=== PATIENT | female | born 1970 | race Caucasian/White ===

== ENCOUNTER → 2017-12-10 | Outpatient (CLI) | payer BC, OTHER ==
[~2017-12-10] MED LIST: IOHEXOL 240 MG/ML 50ML VIAL. ONE; IOHEXOL 300 MG/ML 75 ML VIAL. IV ONE
--- NOTE | 2017-12-10 15:29 | RAD ---
EXAM: Abdomen and pelvis CT with intravenous contrast. HISTORY: Left lower quadrant pain. TECHNIQUE: Computed tomographic images of the abdomen and pelvis were obtained following the administration of 75 cc Omnipaque 300 intravenous contrast. Multiplanar reformatting was performed. *One or more of the following individualized dose reduction techniques were utilized for this examination: 1. Automated exposure control. 2. Adjustment of the mA and/or kV according to patient size. 3. Use of iterative reconstruction technique. COMPARISON: None. FINDINGS: Evaluation of the lower thorax is unremarkable. No hepatic lesion is seen. The gallbladder is contracted due to the postprandial status the patient. The pancreas, adrenal glands and right kidney are unremarkable. There is a 3 mL nonobstructing stone within the lower pole the left kidney. There is no appendicitis. There is extensive colonic diverticulosis. There is segmental mucosal thickening with surrounding stranding at the splenic flexure the colon due to acute diverticulitis. No drainable fluid collection is seen. There are multiple ovarian follicles with a suspected dominant left ovarian follicular cyst measuring 2.4 cm. There is a small amount of pelvic free fluid. The bladder is decompressed. There are prominent retroperitoneal lymph nodes, likely physiologic or reactive in etiology. There is evidence of prior hernia repair. There is no suspicious osseous lesion. IMPRESSION: 1. Acute diverticulitis involving the splenic flexure of the colon. No drainable fluid collection is seen. The superimposed on diffuse colonic diverticulosis. 2. Prominent retroperitoneal lymph nodes, likely physiologic or reactive in etiology. 3. Suspected 2.4 cm dominant left ovarian follicular cyst. Electronically signed by: Antonia Lazaro MD (12/10/2017 3:26 PM) [id number]
== END | disposition home or self-care (01) ==
LOC: CT 13:32
PROVIDERS: ATTEND Physician Assistant
DX: K57.32 Diverticulitis of large intestine without perforation or abscess without bleeding (principal); K57.30 Diverticulosis of large intestine without perforation or abscess without bleeding; R59.0 Localized enlarged lymph nodes
CPT/HCPCS: 74177; Q9966; Q9967

== ENCOUNTER → 2017-12-10 | Outpatient (CLI) | payer BC, OTHER ==
[2017-12-10 12:28] LABS: BASO % 0 % (0-3); EOS # 0.2 x10^3/uL (0.0-0.7); EOS % 2 % (0-3); HEMATOCRIT 41.1 % (36.0-47.0); HEMOGLOBIN 13.8 g/dL (12.0-15.5); LYMPH % 18 % (24-48); MEAN CORPUSCULAR HEMOGLOBIN 31 pg (25-35); MEAN CORPUSCULAR HGB CONC 34 g/dL (31-37); MEAN CORPUSCULAR VOLUME 92 fL (79-100); MONO # 0.8 x10^3/uL (0.0-1.1); MONO % 7 % (0-9); NEUT # 8.5 x10^3uL (1.8-7.7); NEUT % 73 % (31-73); PLATELET COUNT 293 x10^3/uL (140-400); RED BLOOD COUNT 4.48 x10^6/uL (3.50-5.40); RED CELL DISTRIBUTION WIDTH 13.8 % (11.5-14.5); WHITE BLOOD COUNT 11.5 x10^3/uL (4.0-11.0)
[2017-12-10 12:45] LABS: ALBUMIN 3.5 g/dL (3.4-5.0); ALBUMIN/GLOBULIN RATIO 0.7 (1.0-1.7); CALCIUM 9.4 mg/dL (8.5-10.1); CREATININE 0.9 mg/dL (0.6-1.0); GFR 67.4; POTASSIUM 3.4 mmol/L (3.5-5.1); TOTAL BILIRUBIN 0.4 mg/dL (0.2-1.0); TOTAL PROTEIN 8.2 g/dL (6.4-8.2)
[2017-12-10 13:36] LABS: SEDIMENTATION RATE 50 (0-25)
== END | disposition home or self-care (01) ==
LOC: PMG 11:41
PROVIDERS: ATTEND Physician Assistant
DX: R10.32 Left lower quadrant pain (principal)
CPT/HCPCS: 36415; 80053; 82150; 83690; 85025; 85651

== ENCOUNTER → 2019-03-05 | Outpatient (CLI) | payer BC, OTHER ==
[2019-03-05 15:02] LABS: BASO % 0 % (0-3); EOS # 0.4 x10^3/uL (0.0-0.7); EOS % 5 % (0-3); HEMATOCRIT 39.9 % (36.0-47.0); HEMOGLOBIN 13.3 g/dL (12.0-15.5); LYMPH # 2.2 x10^3/uL (1.0-4.8); LYMPH % 26 % (24-48); MEAN CORPUSCULAR HEMOGLOBIN 31 pg (25-35); MEAN CORPUSCULAR HGB CONC 33 g/dL (31-37); MEAN CORPUSCULAR VOLUME 92 fL (79-100); MONO # 0.4 x10^3/uL (0.0-1.1); MONO % 5 % (0-9); NEUT # 5.5 x10^3uL (1.8-7.7); NEUT % 64 % (31-73); PLATELET COUNT 294 x10^3/uL (140-400); RED BLOOD COUNT 4.36 x10^6/uL (3.50-5.40); RED CELL DISTRIBUTION WIDTH 13.6 % (11.5-14.5); WHITE BLOOD COUNT 8.6 x10^3/uL (4.0-11.0)
[2019-03-05 15:06] LABS: ALBUMIN 3.4 g/dL (3.4-5.0); ALBUMIN/GLOBULIN RATIO 0.8 (1.0-1.7); CALCIUM 8.7 mg/dL (8.5-10.1); CREATININE 0.8 mg/dL (0.6-1.0); GFR 76.9; POTASSIUM 3.9 mmol/L (3.5-5.1); TOTAL BILIRUBIN 0.2 mg/dL (0.2-1.0); TOTAL PROTEIN 7.5 g/dL (6.4-8.2)
[2019-03-05 16:06] LABS: SEDIMENTATION RATE 18 (0-25)
[2019-03-06 11:17] LABS: FREE T4 0.9 ng/dL (0.76-1.46); THYROID STIM HORMONE (TSH) 5.695 uIU/mL (0.358-3.740)
--- NOTE | 2019-03-06 11:18 | RAD ---
Supine abdomen. HISTORY: Abdominal pain Supine views were taken of the abdomen. Bowel pattern is normal. There are no abnormal calcifications. Osseous structures are unremarkable. IMPRESSION: 1. No bowel obstruction or acute finding in the abdomen. Electronically signed by: Cade Heredia MD (03/06/2019 11:16 AM) [facility]
== END | disposition home or self-care (01) ==
LOC: PMG 14:09
PROVIDERS: ATTEND Physician Assistant
DX: R10.32 Left lower quadrant pain (principal); M54.6 Pain in thoracic spine; G56.91 Unspecified mononeuropathy of right upper limb
CPT/HCPCS: 36415; 74019; 80053; 84439; 84443; 85025; 85651

== ENCOUNTER → 2019-03-16 | Outpatient (CLI) | payer BC, OTHER ==
--- NOTE | 2019-03-16 10:57 | RAD ---
CT ABDOMEN PELVIS WO CONTRAST Indication: Left lower quadrant pain. Left flank pain. Hematuria. Exposure: One or more of the following individualized dose reduction techniques were utilized for this examination: 1. Automated exposure control 2. Adjustment of the mA and/or kV according to patient size 3. Use of iterative reconstruction technique. Comparison: 12/10/2017 Technique: No intravenous contrast given. No oral contrast per request. Findings: Evaluation of solid viscera, bowel and vasculature is compromised by the noncontrast technique. Lung bases are clear. Liver and spleen appear unremarkable. Pancreas appears unremarkable. No evidence of adrenal mass. Small nonobstructive calculus in the lower pole the left kidney measuring 5 mm. This was also seen on the prior study. No evidence of hydronephrosis. The distal ureters are difficult to follow, but no evidence of ureteric dilatation or ureteric calculus. Gallbladder is not well distended, no calcified stone is seen. Aorta is nonaneurysmal. Small retroperitoneal and mesenteric lymph nodes are seen, appears stable, no pathologic lymph node enlargement is seen. Small hiatal hernia and/or mild distal esophageal wall thickening is seen and appears similar to the prior study. Stomach is not distended. No significant small bowel distention. No evidence of colonic wall thickening or acute paracolonic fatty stranding. Mild diverticulosis. Appendix appears normal. No evidence of ascites or pneumoperitoneum. Urinary bladder is not well distended, appears similar to prior study. No evidence of definite pelvic mass. Vertebral body height and alignment are intact. Mild degenerative spondylosis. No aggressive bone destruction. IMPRESSION: 1. Small nonobstructive left renal calculus is again seen. 2. Small hiatal hernia versus distal esophageal wall thickening appears similar to prior study. 3. No acute findings are identified. Electronically signed by: Jesse Allen MD (03/16/2019 10:54 AM) [id number]
== END | disposition home or self-care (01) ==
LOC: CT 09:56
PROVIDERS: ATTEND Physician Assistant
DX: N20.0 Calculus of kidney (principal); K57.90 Diverticulosis of intestine, part unspecified, without perforation or abscess without bleeding; M47.816 Spondylosis without myelopathy or radiculopathy, lumbar region
CPT/HCPCS: 74176

== ENCOUNTER → 2020-04-28 | Outpatient (CLI) | payer BC, OTHER ==
--- NOTE | 2020-04-28 16:09 | RAD ---
XR EXAM OF ANKLE_RIGHT 3VIEWS 04/28/2020 9:30 AM INDICATION: Ankle pain COMPARISON: None available. TECHNIQUE: 3 views the right ankle are provided. FINDINGS/ IMPRESSION: There is no acute fracture or dislocation. Joint spaces are maintained. Bone mineralization is within normal limits. Regional soft tissues are within normal limits. There is no soft tissue gas or osseou s erosion. No radiopaque foreign body. Posterior and plantar calcaneal enthesophytes are present. Electronically signed by: Vernell Solano MD (04/28/2020 4:07 PM) [email or web address]
== END ==
LOC: RAD 09:14
PROVIDERS: ATTEND Physician Assistant
DX: M25.571 Pain in right ankle and joints of right foot (principal)
CPT/HCPCS: 73610

== ENCOUNTER → 2020-05-17 | Day surgery (SDC) | payer BC, OTHER ==
[~2020-05-17] MED LIST changes: -IOHEXOL 240 MG/ML 50ML VIAL. ONE; -IOHEXOL 300 MG/ML 75 ML VIAL. IV ONE; +MELO15TA6 PO
[2020-05-17 12:11] VITALS: BP 151/99
== END | disposition home or self-care (01) ==
LOC: SURG 12:01
PROVIDERS: ATTEND Anesthesiology
DX: M47.22 Other spondylosis with radiculopathy, cervical region (principal); M50.10 Cervical disc disorder with radiculopathy, unspecified cervical region; M54.5 Low back pain; J30.2 Other seasonal allergic rhinitis; Z90.13 Acquired absence of bilateral breasts and nipples; Z98.890 Other specified postprocedural states; Z79.899 Other long term (current) drug therapy; Z85.3 Personal history of malignant neoplasm of breast
CPT/HCPCS: 99204; G0463

== ENCOUNTER → 2020-06-21 | Day surgery (SDC) | payer BC, OTHER ==
[~2020-06-21] MED LIST changes: +omega 3
[2020-06-21 14:19] VITALS: BP 111/94
== END | disposition home or self-care (01) ==
LOC: SURG 14:14
PROVIDERS: ATTEND Anesthesiology
DX: M54.12 Radiculopathy, cervical region (principal); M47.812 Spondylosis without myelopathy or radiculopathy, cervical region; M50.30 Other cervical disc degeneration, unspecified cervical region; J30.2 Other seasonal allergic rhinitis; M54.5 Low back pain; Z90.13 Acquired absence of bilateral breasts and nipples; Z85.3 Personal history of malignant neoplasm of breast; Z90.721 Acquired absence of ovaries, unilateral; Z79.899 Other long term (current) drug therapy
CPT/HCPCS: 99212; G0463

== ENCOUNTER → 2020-06-28 | Day surgery (SDC) | payer BC, OTHER ==
[~2020-06-28] MED LIST changes: +0.9 % SODIUM CHLORIDE 10 ML VIAL. ONE; +DEXAMETHASONE SOD PHOS 10 MG/ML VIAL. ONE; +IOHEXOL 300 MG/ML 50 ML VIAL. ONE; +LIDOCAINE 1% PF 30 ML VIAL. ONE
[2020-06-28 09:46] VITALS: BP 123/85
== END | disposition home or self-care (01) ==
LOC: SURG 09:07
PROVIDERS: ATTEND Anesthesiology
DX: M54.12 Radiculopathy, cervical region (principal); Z87.442 Personal history of urinary calculi; Z90.13 Acquired absence of bilateral breasts and nipples; Z90.721 Acquired absence of ovaries, unilateral; Z85.3 Personal history of malignant neoplasm of breast; Z79.899 Other long term (current) drug therapy; Z98.890 Other specified postprocedural states
CPT/HCPCS: 62321; J1100; Q9967; 72275

== ENCOUNTER → 2020-07-26 | Day surgery (SDC) | payer BC, OTHER ==
[~2020-07-26] MED LIST changes: -0.9 % SODIUM CHLORIDE 10 ML VIAL. ONE; +BUPIVACAINE MPF 0.25% 10 ML VIAL. ONE; -DEXAMETHASONE SOD PHOS 10 MG/ML VIAL. ONE
[2020-07-26 15:26] VITALS: BP 136/89
== END | disposition home or self-care (01) ==
LOC: SURG 14:15
PROVIDERS: ATTEND Anesthesiology
DX: M47.812 Spondylosis without myelopathy or radiculopathy, cervical region (principal); M50.30 Other cervical disc degeneration, unspecified cervical region; M47.816 Spondylosis without myelopathy or radiculopathy, lumbar region; Z85.3 Personal history of malignant neoplasm of breast; Z90.13 Acquired absence of bilateral breasts and nipples; Z98.890 Other specified postprocedural states; Z79.899 Other long term (current) drug therapy; Z90.721 Acquired absence of ovaries, unilateral; Z87.442 Personal history of urinary calculi
CPT/HCPCS: 64490; 64491; J3490; Q9967